=== PATIENT | female | born 1955 | race Caucasian/White ===

== ENCOUNTER 2018-07-23 15:35 | Inpatient (IN) | payer OTHER ==
[~2018-07-23] VITALS: Ht 160 cm; Wt 36.7 kg
[2018-07-23] MEDS ORDERED: SODIUM CHLORIDE 0.9% 1,000 ML IV ONE (16:13)
[2018-07-23 16:31] LABS: BASOPHILS % 0.4 % (0.0-2.0); EOSINOPHILS % 0.7 % (0.0-5.0); HEMOGLOBIN. 13.2 g/dL (12.0-16.0); LYMPHOCYTES % 34.7 % (20.0-50.0); MEAN CORPUSCULAR HEMOGLOBIN 32.9 pg (28.0-32.0); MEAN CORPUSCULAR VOLUME 94.9 fL (81.0-99.0); MEAN PLATELET VOLUME 7.9 fl (7.4-10.4); MONOCYTES % 6.2 % (2.0-8.0); PLATELET 350 x1000/uL (130-400); RED BLOOD CELL COUNT 4.01 mill/uL (4.2-5.4); RED CELL DISTRIBUTION WIDTH 12.7 % (11.6-14.6)
[2018-07-23 16:32] LABS: CHLORIDE 92 mEq/L (98-107)
[2018-07-23 16:58] LABS: PARTIAL THROMBOPLASTIN TIME 23.1 sec (23.4-31.0)
[2018-07-23] MEDS ORDERED: POTASSIUM CHLORIDE 20MEQ TABLET SR PO ONE (17:00)
[2018-07-23] MEDS ORDERED: KCL 20MEQ/100ML PREMIX 100 ML IV ONE (17:00)
[2018-07-23 22:22] VITALS: BP 151/82
[2018-07-23 22:26] VITALS: BP 151/82
[2018-07-23] MEDS ORDERED: IPRATROPIUM/ALBUTEROL 0.5-3(2.5)MG/3ML NEB HHN PRN (23:00)
[2018-07-23] MEDS ORDERED: ACETAMINOPHEN 325MG TABLET PO PRN (23:00)
[2018-07-23] MEDS ORDERED: AMLODIPINE 5MG TABLET PO NR (23:00)
[2018-07-23] MEDS ORDERED: CLONIDINE 0.1MG TABLET PO PRN (23:00)
[2018-07-23] MEDS: CINACALCET HCL 60MG TABLET PO SCH (23:49)
[2018-07-24] VITALS (7 sets, daily range): BP systolic 101–129; BP diastolic 59–79
[2018-07-24] MEDS: APIXABAN 2.5 MG TABLET PO SCH ×3 (00:19→17:59)
[2018-07-24] MEDS ORDERED: PANTOPRAZOLE 40MG DR TABLET PO SCH (07:40)
[2018-07-24] MEDS: CINACALCET HCL 60MG TABLET PO SCH ×2 (08:31→17:59)
[2018-07-24] MEDS ORDERED: ENOXAPARIN 40MG/0.4ML SYR SUBCUT SCH (09:00)
[2018-07-24] MEDS ORDERED: AMLODIPINE 5MG TABLET PO SCH (09:00)
[2018-07-24 10:03] LABS: BASOPHILS % 0.4 % (0.0-2.0); EOSINOPHILS % 0.6 % (0.0-5.0); HEMATOCRIT. 34.3 % (36.0-48.0); HEMOGLOBIN. 11.8 g/dL (12.0-16.0); LYMPHOCYTES % 19.3 % (20.0-50.0); MEAN CORPUSCULAR HEMOGLOBIN 32.5 pg (28.0-32.0); MEAN CORPUSCULAR VOLUME 94.6 fL (81.0-99.0); MEAN PLATELET VOLUME 8.2 fl (7.4-10.4); MONOCYTES % 5.6 % (2.0-8.0); NEUTROPHILS % 74.1 % (40.0-76.0); PLATELET 319 x1000/uL (130-400); RED BLOOD CELL COUNT 3.62 mill/uL (4.2-5.4); RED CELL DISTRIBUTION WIDTH 12.8 % (11.6-14.6)
[2018-07-24 11:23] LABS: PHOSPHORUS 2.8 mg/dL (2.5-4.9)
[2018-07-24] MEDS ORDERED: POTASSIUM CHLORIDE 20MEQ TABLET SR PO NR (12:11)
[2018-07-24] MEDS ORDERED: DEXTROSE 50% WATER 50ML SYRINGE IV PRN (14:00)
[2018-07-24] MEDS: BLOOD SUGAR DIAGNOSTIC STRIP TEST SCH ×2 (18:04→20:38)
[2018-07-24] MEDS: INSULIN LISPRO 100 UNITS/ML SUBCUT SCH ×2 (18:04→20:38)
== END 2018-07-25 00:05 | DRG 422 ==
LOC: ER 15:35 → 7WST 18:03 → ENRESERV 19:40
PROVIDERS: ADMIT Internal Medicine; ATTEND Internal Medicine
DX: E86.0 Dehydration (principal); E83.52 Hypercalcemia; I48.0 Paroxysmal atrial fibrillation; E87.1 Hypo-osmolality and hyponatremia; E87.6 Hypokalemia; I12.9 Hypertensive chronic kidney disease with stage 1 through stage 4 chronic kidney disease, or unspecified chronic kidney disease; N18.9 Chronic kidney disease, unspecified; R26.9 Unspecified abnormalities of gait and mobility; R62.7 Adult failure to thrive; Z87.891 Personal history of nicotine dependence; Z90.49 Acquired absence of other specified parts of digestive tract; Z91.19 Patient's noncompliance with other medical treatment and regimen; Z86.73 Personal history of transient ischemic attack (TIA), and cerebral infarction without residual deficits; Z86.718 Personal history of other venous thrombosis and embolism; Z68.1 Body mass index [BMI] 19.9 or less, adult
CPT/HCPCS: 36415; 71045; 80048; 82330; 82378; 82962; 83735; 83880; 83970; 84100; 84132; 84443; 84484; 93005; 96374; 97162; 99285; J3480; J7030